=== PATIENT | female | born 1980 | race African-American/Black ===

== ENCOUNTER 2016-11-22 15:04 | Emergency (ER) | payer MEDICAID ==
[~2016-11-22] VITALS: Ht 162.6 cm; Wt 68.0 kg
[~2016-11-22 15:04] MED LIST: ACYC400T PO; HYDR-3533 PO; METR-1 PO; VARE1PAK5 PO; ZOFR4TAB3 SL; ZOLO50TA PO
[2016-11-22 15:06] VITALS: BP 135/92; PULSE 78; RESP 16; TEMP 99; O2SAT 100
[2016-11-22] MEDS ORDERED: CLIN1CAP5 PO (15:50)
[2016-11-22] MEDS ORDERED: MOBI15TA PO (15:50)
[2016-11-22] MEDS ORDERED: DOXY100T PO (15:50)
--- NOTE | 2016-11-22 15:51 | PD ---
HPI Chief Complaint: Lump, Cyst, Hernia Time Seen by Provider: 15:39 Travel History International Travel<30 days: No Contact w/Intl Traveler<30days: No Traveled to known affect area: No History of Present Illness HPI 36-year-old female complains of painful lump on the left groin area. Patient states that the symptoms started last night. Patient denies any injury. Patient has any fever chills. Patient states the pain is sharp pain localized to left groin. Patient denies any pain radiation. On a scale of 1-10 the pain is a 10. PFSH Past Medical History Asthma: Yes Anxiety: No Depression: No Cancer: No Cardiovascular Problems: Yes (hx) High Cholesterol: No Diabetes: No Diminished Hearing: No Endocrine: No Gastrointestinal Disorders: Yes Genitourinary: No Headaches: Yes Hypertension: Yes (out of meds) Immune Disorder: No Implanted Vascular Access Dvce: No Musculoskeletal: No Neurologic: Yes Psychiatric: No Reproductive: Yes Respiratory: Yes Influenza Vaccination: No ?: Not LMP: 3 years ago : 4 Para: 3 Miscarriage: 1 Tubal Ligation: Yes Past Surgical History Section: Yes (x2) Gynecologic Surgery: Yes (2 CSETIONS AND TUBE REMOVED) Hysterectomy: Yes (partial) Other Surgery: Yes Social History Alcohol Use: No Tobacco Use: Yes (5 cigs black & miles) Substance Use: No Allergies-Medications (Allergen,Severity, Reaction): Coded Allergies: Percocet (Verified Allergy, Intermediate, rash, 11/22/16) Tramadol (Verified Allergy, Unknown, RASH AND HEADACHE, 11/22/16) Reported Meds & Prescriptions Reported Meds & Active Scripts Active No Active Prescriptions or Reported Medications Review of Systems General / Constitutional: No: Fever Eyes: No: Visual changes HENT: No: Headaches Cardiovascular: No: Chest Pain or Discomfort Respiratory: No: Shortness of Breath Gastrointestinal: No: Abdominal Pain Genitourinary: No: Dysuria Musculoskeletal: No: Pain Skin: No Rash Neurologic: No: Weakness Psychiatric: No: Depression Endocrine: No: Polydipsia Hematologic/Lymphatic: No: Easy Bruising Physical Exam Narrative GENERAL: Well-nourished, well-developed patient. SKIN: Focused skin assessment warm/dry. HEAD: Normocephalic. EYES: No scleral icterus. No injection or drainage. NECK: Supple, trachea midline. No JVD or lymphadenopathy. CARDIOVASCULAR: Regular rate and rhythm without murmurs, gallops, or rubs. RESPIRATORY: Breath sounds equal bilaterally. No accessory muscle use. GASTROINTESTINAL: Abdomen soft, non-tender, nondistended. MUSCULOSKELETAL: No cyanosis, or edema. BACK: Nontender without obvious deformity. No CVA tenderness. Patient has painful left inguinal lymphadenopathy. No evidence of hernia. No redness no heat and no induration to the groin area. Data Data Last Documented VS Vital Signs Date Time Temp Pulse Resp B/P Pulse Ox O2 Delivery O2 Flow Rate FiO2 11/22/16 15:06 99.0 78 16 135/92 100 MDM Medical Decision Making Medical Screen Exam Complete: Yes Emergency Medical Condition: Yes Differential Diagnosis Differential diagnosis including lymphadenitis, lymphadenopathy, inguinal hernia. Narrative Course 36-year-old female with painful lumps in the left groin. Diagnosis Primary Impression: Lymphadenitis Patient Instructions: General Instructions Additional Instructions: Take medications as directed. Follow-up with personal physician. Return if worse. Med/Other Pt SpecificInfo: Prescription(s) given Scripts Meloxicam (Mobic)15 Mg Tab15 Mg PO DAILY #20 TAB Ref 0 Prov:Raleigh Jimenez MD 11/22/16 Doxycycline Hyclate 100 Mg Wpd047 Mg PO BID #20 TAB Prov:Raleigh Jimenez MD 11/22/16 Clindamycin 150 Mg Cap2 Tab PO Q6H #80 CAP Prov:Raleigh Jimenez MD 11/22/16 Disposition: 01 DISCHARGE HOME Condition: Stable Raleigh Jimenez MD Nov 22, 2016 15:51
== END 2016-11-22 16:25 | disposition home or self-care (01) ==
LOC: PHED 15:04
DX: I88.9 Nonspecific lymphadenitis, unspecified (principal)
CPT/HCPCS: 99283